=== PATIENT | male | born 1990 | race Caucasian/White ===

== ENCOUNTER 2016-09-04 00:24 | Emergency (ER) | payer SELFPAY ==
[~2016-09-04] VITALS: Ht 188 cm; Wt 77.3 kg
[~2016-09-04 00:24] MED LIST: FLEXERIL10 MG PO; HYDROCODON-ACE1 EAC7 PO; LIBRIUM25 MG PO; NAPROSYN500 MG PO; PEN-VEE K,VEET500 MG PO; THIAMINE HCL100 MG PO; ZOFRAN ODT4 MG PO
[2016-09-04 00:47] LABS: HEMATOCRIT 42.5 % (38.0-50.0); MCHC 34.1 G/DL (30.0-36.0); MCV 90.8 FL (86-99); MEAN PLAT.VOLUME 10.1 uM^3 (9.0-12.4); PLATELET COUNT 339 K/uL (156-360); RBC DIS.WIDTH-CV 12.5 % (11.8-14.6); RBC DIS.WIDTH-SD 41.1 % (39-53); RED BLOOD COUNT 4.68 M/uL (4.00-5.50); WHITE BLOOD COUNT 6.8 K/uL (4.1-10.2)
[2016-09-04 00:55] LABS: CHLORIDE 111 mEq/L (99-109)
[2016-09-04 00:56] LABS: POTASSIUM 3.4 mEq/L (3.7-5.4); SODIUM 147 mEq/L (136-147)
[2016-09-04 00:59] LABS: ANION GAP 17 MEQ/L (2-14)
[2016-09-04 01:00] LABS: TOTAL BILIRUBIN 0.3 mg/dL (0.0-1.0)
[2016-09-04 01:01] LABS: ALKALINE PHOSPHATASE 71 IU/L (3-129); SERUM ETHYL ALCOHOL 274 mg/dL
[2016-09-04 01:02] LABS: GFR ESTIMATE (CALCULATED) > 59 mL/min/
[2016-09-04 01:03] LABS: DIRECT BILIRUBIN 0.1 mg/dL (0.0-0.3); UREA NITROGEN (BUN) 17 mg/dL (9-23)
[2016-09-04 01:31] LABS: GLUCOSE 97 mg/dL (70-99)
[2016-09-04 02:19] LABS: ANTI-HIV (AIDS STAT TEST) NONREACTIVE; INTERNAL CONTROL VALID? YES
[2016-09-04 05:06] VITALS: BP 101/57
[2016-09-05 12:37] LABS: HPCA INDEX 0.13
[2016-09-05 12:38] LABS: AHBS INDEX 4.44; HEPATITIS B SURFACE ANTIBODY Nonreactive
[2016-09-05 12:39] LABS: HIV INDEX 0.08; HIV-1/2 AB/AG COMBO Nonreactive
[2016-09-05] MEDS ORDERED: LIBRIUM25 MG PO (21:30)
== END 2016-09-04 05:07 | disposition home or self-care (01) ==
LOC: EME 00:24
PROVIDERS: Emergency Medicine
DX: R45.1 Restlessness and agitation (principal); R41.0 Disorientation, unspecified; R04.0 Epistaxis; F10.229 Alcohol dependence with intoxication, unspecified; S02.2XXA Fracture of nasal bones, initial encounter for closed fracture; S06.9X9A Unspecified intracranial injury with loss of consciousness of unspecified duration, initial encounter; S00.212A Abrasion of left eyelid and periocular area, initial encounter; S00.81XA Abrasion of other part of head, initial encounter; Y09 Assault by unspecified means; Y90.8 Blood alcohol level of 240 mg/100 ml or more; F17.200 Nicotine dependence, unspecified, uncomplicated
CPT/HCPCS: 70450; 70486; 80053; 81003; 82248; 85027; 86703; 86706; 86803; 93005; 99281; 99285; G0480; J1630; J2060; J7030

== ENCOUNTER 2016-09-05 20:20 | Emergency (ER) | payer SELFPAY ==
[~2016-09-05] VITALS: Ht 188 cm; Wt 79.6 kg
[2016-09-05] MEDS ORDERED: LIBRIUM25 MG PO (21:30)
[2016-09-05 21:32] VITALS: BP 150/98
== END 2016-09-05 21:48 | disposition home or self-care (01) ==
LOC: EME 20:20
DX: F10.239 Alcohol dependence with withdrawal, unspecified (principal); M62.831 Muscle spasm of calf; F17.200 Nicotine dependence, unspecified, uncomplicated
CPT/HCPCS: 99281; 99283

== ENCOUNTER 2017-07-17 10:00 | Emergency (ER) | payer SELFPAY ==
[~2017-07-17] VITALS: Ht 190.5 cm; Wt 83.6 kg
[2017-07-17 10:59] LABS: HEMATOCRIT 45.8 % (38.0-50.0); HEMOGLOBIN 16.3 G/DL (12.5-16.6); MCH 32.9 PG (29.0-34.0); MCHC 35.6 G/DL (30.0-36.0); MCV 92.5 FL (86-99); PLATELET COUNT 242 K/uL (156-360); RBC DIS.WIDTH-CV 11.8 % (11.8-14.6); RBC DIS.WIDTH-SD 39.8 % (39-53); RED BLOOD COUNT 4.95 M/uL (4.00-5.50); WHITE BLOOD COUNT 6.8 K/uL (4.1-10.2)
[2017-07-17 11:00] LABS: APPEARANCE CLEAR ((CLEAR)); BILIRUBIN NEGATIVE; BLOOD NEGATIVE; COLOR STRAW ((YELLOW)); GLUCOSE (STRIP) NEGATIVE; KETONES 5; LEUKOCYTES NEGATIVE; NITRITE NEGATIVE; PROTEIN (STRIP) NEGATIVE; SPECIFIC GRAVITY 1.004 (1.000-1.030); UROBILINOGEN 0.2 MG/DL (0.2-1.0)
[2017-07-17 11:07] LABS: ALBUMIN 4.8 g/dL (3.2-4.8); CHLORIDE 97 mEq/L (99-109); POTASSIUM 3.9 mEq/L (3.7-5.4); SODIUM 134 mEq/L (136-147)
[2017-07-17 11:08] LABS: COCAINE NEGATIVE (150 ng/mL); PHENCYCLIDINE NEGATIVE (25 ng/mL); THC CANNABINOIDS NEGATIVE (50 ng/mL)
[2017-07-17 11:09] LABS: GLUCOSE 147 mg/dL (70-99); TOTAL PROTEIN 7.9 g/dL (6.4-8.3)
[2017-07-17 11:09] LABS: AMPHETAMINE NEGATIVE (500 ng/mL); BARBITURATES NEGATIVE (200 ng/mL); BENZODIAZEPINES NEGATIVE (150 ng/mL); BUPRENORPHINE NEGATIVE (10 ng/mL); METHADONE NEGATIVE (200 ng/mL); METHAMPHETAMINE NEGATIVE (500 ng/mL); OPIATES (MORPHINE) NEGATIVE (100 ng/mL); OXYCODONE NEGATIVE (100 ng/mL); PROPOXYPHENE NEGATIVE (300 ng/mL); TRICYCLIC ANTIDEPRESSANTS NEGATIVE (300 ng/mL)
[2017-07-17 11:11] LABS: TOTAL BILIRUBIN 0.7 mg/dL (0.0-1.0)
[2017-07-17 11:12] LABS: SERUM ETHYL ALCOHOL < 10 mg/dL
[2017-07-17 11:13] LABS: ALKALINE PHOSPHATASE 98 IU/L (3-129); CREATININE 0.9 mg/dL (0.6-1.3); GFR ESTIMATE (CALCULATED) > 59 mL/min/ (58.99-99999)
[2017-07-17 11:14] LABS: UREA NITROGEN (BUN) 6 mg/dL (9-23)
[2017-07-17 11:15] LABS: AST (GOT) 107 IU/L (2-34)
[2017-07-17 11:16] LABS: ALT (GPT) 82 IU/L (3-49)
[2017-07-17] MEDS ORDERED: ATARAX,VISTARIL25 MG PO (11:19)
[2017-07-17] MEDS ORDERED: TRAZODONE HCL50 MG PO (11:21)
[2017-07-17] MEDS ORDERED: ZOFRAN4 MG PO (11:21)
[2017-07-17 11:47] VITALS: BP 154/102
== END 2017-07-17 11:48 | disposition home or self-care (01) ==
LOC: EME 10:00
PROVIDERS: Emergency Medicine
DX: F10.239 Alcohol dependence with withdrawal, unspecified (principal); Z72.0 Tobacco use; Z88.5 Allergy status to narcotic agent
CPT/HCPCS: 80053; 81003; 85027; 99281; 99284; G0480

== ENCOUNTER 2018-01-16 08:02 | Emergency (ER) | payer SELFPAY ==
[~2018-01-16] VITALS: Ht 190.5 cm; Wt 84.4 kg
[~2018-01-16 08:02] MED LIST changes: +ATARAX,VISTARIL25 MG PO; +TRAZODONE HCL50 MG PO; +ZOFRAN4 MG PO
[2018-01-16] MEDS ORDERED: LIBRIUM25 MG PO (08:46)
[2018-01-16] MEDS ORDERED: NAPROSYN500 MG PO (08:46)
[2018-01-16 09:06] VITALS: BP 131/96
== END 2018-01-16 09:07 | disposition home or self-care (01) ==
LOC: EME 08:02
DX: F10.129 Alcohol abuse with intoxication, unspecified (principal); M54.5 Low back pain; F17.200 Nicotine dependence, unspecified, uncomplicated
CPT/HCPCS: 99281; 99283